=== PATIENT | female | born 1990 | race African-American/Black ===

== ENCOUNTER 2016-04-06 19:26 | Emergency (ER) | payer OTHER ==
[2016-04-06] MEDS ORDERED: HYDROcodone /APAP 5/325 1 EACH TABLET PO ONE (19:40)
[2016-04-06] MEDS ORDERED: CEPHALEXIN 250 MG CAPSULE PO ONE (19:40)
[2016-04-06 19:42] VITALS: BP 140/81
--- NOTE | 2016-04-06 19:42 | ED Physician Documentation ---
General Adult - HISTORIAN Historian: patient - HPI Stated Complaint: dental pain Chief Complaint: General Adult Onset: hours Timing: still present Severity: moderate Further Comments: yes (Pt is a 25 yo female with dental pain in the lower L rear molar that started earlier today. No fever, n/v. Pt has hx Hodkins lymphoma. Pt has dental appointment arranged in the coming weeks for extractions.) - ROS CONST: no problems EYES/ENT: other (dental pain) GI/: none MS/SKIN/LYMPH: none - PAST HX Past History: other (Hodkins Lymphoma) Allergies/Adverse Reactions: Allergies Allergy/AdvReac Type Severity Reaction Status Date / Time amoxicillin trihydrate Allergy Verified 04/06/16 19:43 [From Augmentin] lorazepam [From Ativan] Allergy Verified 04/06/16 19:43 potassium clavulanate Allergy Verified 04/06/16 19:43 [From Augmentin] Home Medications: Ambulatory Orders Medication Instructions Recorded Ferrous Gluconate [Iron] 236 mg PO D 01/17/16 - SOCIAL HX Smoking History: cigarettes - FAMILY HX Family History: No - VITAL SIGNS Vital Signs: Vital Signs Temp Pulse Resp BP Pulse Ox 123/82 01/17/16 04:04 - REVIEWED ASSESSMENTS Nursing Assessment Reviewed: Yes Vitals Reviewed: Yes Progress - Progress Progress: Rx Keflex 500 mg. Take one every 8 hrs for 10 days. Rx [place] (5/325). Take one every 4 to 6 hrs as needed for moderate to severe pain. Follow up with dentist as planned. ED Results Lab/Radiology - Orders Orders: ED Orders Category Date Time Status Cephalexin [Keflex] Med 04/06/16 19:40 Once 500 mg PO NOW ONE HYDROcodone /APAP 5/325 [[place] 5/325] Med 04/06/16 19:40 Once 4 each PO NOW ONE General Adult Physical Exam - PHYSICAL EXAM GENERAL APPEARANCE: moderate distress EENT: other (poor dentition; tenderness swelling, L rear molar) RESPIRATORY: no resp distress CVS: reg rate & rhythm, heart sounds normal BACK: normal inspection SKIN: warm/dry, normal color EXTREMITIES: normal range of motion NEURO: oriented X3 Discharge Clincal Impression: Pain, dental Referrals: Primary Doctor,No [Primary Care Provider] - Home Medications: Ambulatory Orders Ferrous Gluconate [Iron] 236 mg PO D 01/17/16 Condition: Stable Disposition: 01 HOME, SELF-CARE Decision to Admit: NO Decision Time: 20:30
== END 2016-04-06 20:03 | disposition home or self-care (01) ==
LOC: ED 19:26
DX: K02.9 Dental caries, unspecified (principal)

== ENCOUNTER 2016-08-02 14:16 | Emergency (ER) | payer OTHER ==
--- NOTE | 2016-08-02 14:19 | ED Physician Documentation ---
General Adult - HISTORIAN Historian: patient - HPI Stated Complaint: back pain Chief Complaint: General Adult Onset: days ago (3) Timing: still present Severity: moderate Further Comments: yes (Pt is a 26 yo female with back pain, chills, fever, nausea x 3 days. Pt has had urinary urgency and generalized achiness.) - ROS CONST: chills, other (malaise, achiness) EYES/ENT: none CVS/RESP: none GI/: abdominal pain (lower abd, suprapubic), problems urinating (urgency) MS/SKIN/LYMPH: none - PAST HX Past History: other (cancer) Allergies/Adverse Reactions: Allergies Allergy/AdvReac Type Severity Reaction Status Date / Time amoxicillin trihydrate Allergy Verified 04/06/16 19:43 [From Augmentin] lorazepam [From Ativan] Allergy Verified 04/06/16 19:43 potassium clavulanate Allergy Verified 04/06/16 19:43 [From Augmentin] Home Medications: Ambulatory Orders Medication Instructions Recorded Ferrous Gluconate [Iron] 236 mg PO D 01/17/16 - SOCIAL HX Smoking History: non-smoker - FAMILY HX Family History: No - VITAL SIGNS Vital Signs: Vital Signs Temp Pulse Resp BP Pulse Ox 140/81 04/06/16 23:07 - REVIEWED ASSESSMENTS Nursing Assessment Reviewed: Yes Vitals Reviewed: Yes Progress - Progress Progress: Ibuprofen 800 mg po in ER. Rx Ciprofloxacin 500 mg po bid x 10 days. General Adult Physical Exam - PHYSICAL EXAM GENERAL APPEARANCE: mild distress EENT: pharynx normal NECK: normal inspection, supple RESPIRATORY: no resp distress, chest non-tender, breath sounds normal CVS: reg rate & rhythm, heart sounds normal ABDOMEN: soft, normal bowel sounds, other (suprapubic tenderness) BACK: CVA tenderness (R) (mild) SKIN: warm/dry, normal color EXTREMITIES: non-tender, normal range of motion, no evidence of injury, no edema NEURO: oriented X3, motor nml, sensation nml Discharge Clincal Impression: early pyelonephritis UTI (urinary tract infection) Qualifiers: Urinary tract infection type: site unspecified Hematuria presence: with hematuria Qualified Code(s): N39.0 - Urinary tract infection, site not specified Referrals: Primary Doctor,No [Primary Care Provider] - 2 Days Home Medications: Ambulatory Orders Ferrous Gluconate [Iron] 236 mg PO D 01/17/16 Condition: Good Disposition: 01 HOME, SELF-CARE Decision to Admit: NO Decision Time: 14:53
[2016-08-02] MEDS ORDERED: IBUPROFEN 400 MG TABLET PO ONE ×2 (14:32→14:35)
[2016-08-02 15:11] LABS: APPEARANCE,URINE CLEAR (CLEAR); COLOR,URINE YELLOW (YELLOW)
[2016-08-02 15:12] LABS: OCCULT BLOOD,URINE 2+ (NEGATIVE); PH URINE 5.5 (5.0 - 8.0); URINE HCG NEGATIVE (NEGATIVE)
[2016-08-02 15:40] VITALS: BP 112/62
== END 2016-08-02 15:04 | disposition home or self-care (01) ==
LOC: ED 14:16
DX: N10 Acute pyelonephritis (principal); N39.0 Urinary tract infection, site not specified
CPT/HCPCS: 81002; 81025; 87086; 87186; 99283

== ENCOUNTER 2016-10-22 12:32 | Emergency (ER) | payer MEDICAID, OTHER ==
--- NOTE | 2016-10-22 13:26 | ED Physician Documentation ---
Fall - HISTORIAN Historian: patient - HPI Stated Complaint: fall Chief Complaint: Fall Additional Information: she fell sideways in the [facility] and landed on her right thigh. she is 12 weeks preg and she called her OB, they told her to go to the ER. She has had no pain, no bleeding, no cramping, no abdominal issues. Onset: just prior to arrival Where: home Context: slipped, lost balance r: mild Associated Symptoms:: no loss of consciousness Location of Pain/Injury: lower extremity, hip Injury to Right Extremity: hip, thigh Injury to Left Extremity: none Further Comments: no - ROS CONST: no problems NEURO: denies: dizziness MS/SKIN/LYMPH: denies: weakness, numbness EYES/ENT: none CVS/RESP: none GI/: denies: problems urinating, nausea, vomiting - PAST HX Past History: none, other (currently 12 weeks gestation) Allergies/Adverse Reactions: Allergies Allergy/AdvReac Type Severity Reaction Status Date / Time amoxicillin trihydrate Allergy Verified 10/22/16 12:59 [From Augmentin] lorazepam [From Ativan] Allergy Verified 10/22/16 12:59 potassium clavulanate Allergy Verified 10/22/16 12:59 [From Augmentin] Home Medications: Ambulatory Orders Medication Instructions Recorded Ferrous Gluconate [Iron] 236 mg PO D 01/17/16 Vit/Iron Fumarate/FA 1 tab PO DAILY 10/22/16 [ Tablet] - SOCIAL HX Smoking History: non-smoker Alcohol Use: none Drug Use: none - FAMILY HX Family History: none - VITAL SIGNS Vital Signs: Vital Signs Temp Pulse Resp BP Pulse Ox 98.1 F 75 16 127/56 98 10/22/16 12:46 10/22/16 12:46 10/22/16 12:46 10/22/16 12:46 10/22/16 12:46 - REVIEWED ASSESSMENTS Nursing Assessment Reviewed: Yes Vitals Reviewed: Yes Fall Physical Exam - Physical Exam General Appearance: no acute distress, alert Head: non-tender Neck: non-tender Eye: EOMI ENT: nml external inspection Resp/CVS: chest non-tender Abdomen: soft. No: tenderness Neuro: oriented x3 Skin: color nml Back: normal inspection Extremities: atraumatic Discharge Clincal Impression: Incidental intrauterine Fall Qualifiers: Encounter type: initial encounter Qualified Code(s): W19.XXXA - Unspecified fall, initial encounter Contusion of thigh, right Qualifiers: Encounter type: initial encounter Qualified Code(s): S70.11XA - Contusion of right thigh, initial encounter Referrals: Primary Doctor,No [Primary Care Provider] - 2 Days Home Medications: Ambulatory Orders Ferrous Gluconate [Iron] 236 mg PO D 01/17/16 Vit/Iron Fumarate/FA [ Tablet] 1 tab PO DAILY 10/22/16 Condition: Good Disposition: 01 HOME, SELF-CARE Decision to Admit: NO Date of Decison to Admit: 10/22/16 Decision Time: 13:31
[2016-10-22 13:37] VITALS: BP 116/64
== END 2016-10-22 13:35 | disposition home or self-care (01) ==
LOC: ED 12:32
DX: S70.11XA Contusion of right thigh, initial encounter (principal); W19.XXXA Unspecified fall, initial encounter; Y93.9 Activity, unspecified; Y99.9 Unspecified external cause status; Z33.1 Pregnant state, incidental
CPT/HCPCS: 99283

== ENCOUNTER 2016-11-04 07:02 | Emergency (ER) | payer MEDICAID, OTHER ==
--- NOTE | 2016-11-04 07:15 | ED Physician Documentation ---
Sore Throat/Dental Pain - HISTORIAN Historian: patient - HPI Chief Complaint: Dental Pain Onset: hours (8 hours) Associated Symptoms: denies: fever, chills Further Comments: yes (Patient has had previous dental issues with tooth, last noc started to hurt again, is having some swelling to the gum zafar, no fever or chills. Patient is 13 weeks at this time. Does have an appointment with dentist.) - ROS CONST: no problems - PAST HX Past History: none Other History: none Immunizations: referred to PCP Allergies/Adverse Reactions: Allergies Allergy/AdvReac Type Severity Reaction Status Date / Time amoxicillin trihydrate Allergy Verified 10/22/16 12:59 [From Augmentin] lorazepam [From Ativan] Allergy Verified 10/22/16 12:59 potassium clavulanate Allergy Verified 10/22/16 12:59 [From Augmentin] Home Medications: Ambulatory Orders Medication Instructions Recorded Ferrous Gluconate [Iron] 236 mg PO D 01/17/16 Vit/Iron Fumarate/FA 1 tab PO DAILY 10/22/16 [ Tablet] Clindamycin HCl [Cleocin HCl] 300 mg PO QID #28 capsule 11/04/16 - SOCIAL HX Smoking History: quit less than 1 year Alcohol Use: none Drug Use: none - FAMILY HX Family History: No - VITAL SIGNS Vital Signs: Vital Signs Temp Pulse Resp BP Pulse Ox 116/64 10/22/16 13:36 - REVIEWED ASSESSMENTS Nursing Assessment Reviewed: Yes Vitals Reviewed: Yes Dental Pain Physical Exam - EXAM General Appearance: alert, mild distress Head/Neck: head nml inspection, trachea midline, no lymphadenopathy, mandibular swelling (L) (mild). No: cervical lymphadenopathy Mouth/Throat: lips nml, pharynx nml, voice nml, dental tenderness, gum swelling around teeth, widespread dental decay Ear/Nose: nml inspection Respiratory: no resp. distress, breath sounds nml, respiratory distress CVS: reg. rate & rhythm, heart sounds nml. No: murmur, tachycardia, bradycardia Abdomen: soft, no organomegaly, normal bowel sounds, no abdominal bruit Skin: warm/dry, normal color Neuro/Psych: No: weakness, numbness Discharge Clincal Impression: Pain due to dental caries Prescriptions: Clindamycin HCl [Cleocin HCl] 300 mg PO QID #28 capsule Referrals: Primary Doctor,No [Primary Care Provider] - 2 Days Additional Instructions: Drink a lot of fluids, gargle with salt water. If symptoms do not improve to follow-up with your primary care provider. Take Tylenol as needed for pain. Take clindamycin for infection. Home Medications: Ambulatory Orders Ferrous Gluconate [Iron] 236 mg PO D 01/17/16 Vit/Iron Fumarate/FA [ Tablet] 1 tab PO DAILY 10/22/16 Clindamycin HCl [Cleocin HCl] 300 mg PO QID #28 capsule 11/04/16 Condition: Stable Disposition: 01 HOME, SELF-CARE Decision to Admit: NO Date of Decison to Admit: 11/04/16 Decision Time: 07:27
[2016-11-04] MEDS ORDERED: CLINDAMYCIN HCL 150 MG CAPSULE PO ONE (07:23)
[2016-11-04 07:36] VITALS: BP 150/68
== END 2016-11-04 07:34 | disposition home or self-care (01) ==
LOC: ED 07:02
DX: K02.9 Dental caries, unspecified (principal)
CPT/HCPCS: 99283; A9270

== ENCOUNTER 2018-12-03 22:45 | Emergency (ER) | payer MEDICAID, OTHER ==
--- NOTE | 2018-12-03 23:29 | ED Physician Documentation ---
Skin Rash - HISTORIAN Historian: patient - HPI Stated Complaint: Sore to Lt lower leg, medially Chief Complaint: Skin Rash Onset: other (yesterday) Timing: worse Location: LLE Further Comments: yes (28 year old female patient presents with complaint of wound to LLE; concerned she has a spider bite. "Popped" it yesterday and made it drain. Now painful. Took tylenol this morning.) - ROS CONST: none CVS/RESP: none EYES/ENT: none GI/: none MS/SKIN/LYMPH: none NEURO/PSYCH: none - PAST HX Past History: denies: none Allergies/Adverse Reactions: Allergies Allergy/AdvReac Type Severity Reaction Status Date / Time amoxicillin trihydrate Allergy Verified 12/03/18 23:14 [From Augmentin] lorazepam [From Ativan] Allergy Verified 12/03/18 23:14 potassium clavulanate Allergy Verified 12/03/18 23:14 [From Augmentin] Home Medications: Ambulatory Orders Medication Instructions Recorded Mupirocin 2% Oint. [Bactroban] 1 appl TP BID #1 tube 12/03/18 Sulfamethoxazole/Trimethoprim 1 each PO BID #20 tab 12/03/18 [Bactrim Ds] - SOCIAL HX Smoking History: cigarettes - FAMILY HX Family History: denies: none - VITAL SIGNS Vital Signs: Vital Signs Temp Pulse Resp BP Pulse Ox 97.9 F 89 14 121/67 99 12/03/18 22:46 12/03/18 22:46 12/03/18 22:46 12/03/18 22:46 12/03/18 22:46 - REVIEWED ASSESSMENTS Nursing Assessment Reviewed: Yes Vitals Reviewed: Yes ED Results Lab/Radiology - Orders Orders: ED Orders Category Date Time Status Cephalexin [Keflex] Med 12/03/18 23:25 Discontinued 500 mg PO NOW ONE Skin Rash Physical Exam - EXAM General Appearance: no acute distress (sleeping on stretcher), mild distress Location: extremities (LLE) Character: erythematous Symptoms: warmth, tenderness, other (1 cm scabbed area with erythema on LLE - medial aspect just above ankle) Extremities: non-tender, nml ROM, no edema Respiratory: no resp distress CVS: reg. rate & rhythm Neuro/Psych: oriented x3 Discharge Clincal Impression: Cellulitis of lower leg Prescriptions: Mupirocin 2% Oint. [Bactroban] 1 appl TP BID #1 tube Sulfamethoxazole/Trimethoprim [Bactrim Ds] 1 each PO BID #20 tab Referrals: Primary Doctor,No [Primary Care Provider] - 2 Days Additional Instructions: Clean the wound twice a day with hibiclens and rinse with water clean away any scabbed area Apply thin coat of antibiotic ointment after cleaning the wound. Cover with non-adherent bandage if able. If you have pain, take simple pain relief medication such as Tylenol or ibuprofen. Condition: Stable Disposition: 01 HOME, SELF-CARE Decision to Admit: NO Decision Time: 23:29
[2018-12-03] MEDS: CEPHALEXIN 250 MG CAPSULE PO ONE (23:35)
[2018-12-03 23:41] VITALS: BP 116/64
== END 2018-12-03 23:39 | disposition home or self-care (01) ==
LOC: ED 22:45
DX: L03.116 Cellulitis of left lower limb (principal)
CPT/HCPCS: 99281; 99284

== ENCOUNTER 2019-01-02 01:06 | Emergency (ER) | payer SELFPAY ==
--- NOTE | 2019-01-02 01:13 | ED Physician Documentation ---
General Adult - HISTORIAN Historian: patient - HPI Stated Complaint: headache, diarrhea Chief Complaint: General Adult Onset: days ago Timing: still present Severity: moderate Further Comments: yes (Pt is a 28 yo female with c/o headache and diarrhea. Sx began with a cough 4 days ago. Other sx started this am. Pt has had chills. No dysuria.) - ROS CONST: chills EYES/ENT: none GI/: nausea MS/SKIN/LYMPH: none NEURO/PSYCH: headache - PAST HX Past History: none Allergies/Adverse Reactions: Allergies Allergy/AdvReac Type Severity Reaction Status Date / Time amoxicillin trihydrate Allergy Verified 01/02/19 01:30 [From Augmentin] lorazepam [From Ativan] Allergy Verified 01/02/19 01:30 potassium clavulanate Allergy Verified 01/02/19 01:30 [From Augmentin] Home Medications: Ambulatory Orders Medication Instructions Recorded Sulfamethoxazole/Trimethoprim 1 each PO BID #14 tablet 01/02/19 [Bactrim Ds] - SOCIAL HX Smoking History: cigarettes - FAMILY HX Family History: No - VITAL SIGNS Vital Signs: Vital Signs Temp Pulse Resp BP Pulse Ox 116/64 12/03/18 23:39 - REVIEWED ASSESSMENTS Nursing Assessment Reviewed: Yes Vitals Reviewed: Yes Progress - Progress Progress: NS 1 L IVF Zofran 4 mg IV Toradol 30 mg IV improved Rx Bactrim DS. Take one every 12 hours for 7 days. General Adult Physical Exam - PHYSICAL EXAM GENERAL APPEARANCE: moderate distress EENT: pharynx normal NECK: normal inspection, supple. No: lymphadenopathy RESPIRATORY: no resp distress, chest non-tender, breath sounds normal, other (cough) CVS: reg rate & rhythm, heart sounds normal ABDOMEN: soft, no organomegaly, normal bowel sounds BACK: normal inspection, no CVA tenderness SKIN: warm/dry, normal color EXTREMITIES: non-tender, normal range of motion, no evidence of injury, no edema NEURO: oriented X3, motor nml, sensation nml Discharge Clincal Impression: diarrhea, headache Prescriptions: Sulfamethoxazole/Trimethoprim [Bactrim Ds] 1 each PO BID #14 tablet Referrals: Primary Doctor,No [Primary Care Provider] - Condition: Stable Disposition: 01 HOME, SELF-CARE Decision to Admit: NO Decision Time: 03:08
[2019-01-02] MEDS: KETOROLAC TROMETHAMINE 30 MG/1ML VIAL IV ONE (02:01)
[2019-01-02] MEDS: 0.9 % SODIUM CHLORIDE 1,000 ML IV ONE (02:02)
[2019-01-02] MEDS: ONDANSETRON HCL/PF 4 MG/ 2ML VIAL IVP ONE (02:02)
[2019-01-02] MEDS: SULFAMETHOXAZOLE/TRIMETHOPRIM 800/160MG TAB PO ONE (03:10)
[2019-01-02 03:54] VITALS: BP 126/64
[2019-01-02 06:24] LABS: APPEARANCE,URINE CLEAR (CLEAR); COLOR,URINE YELLOW (YELLOW)
[2019-01-02 06:25] LABS: OCCULT BLOOD,URINE NEGATIVE (NEGATIVE)
[2019-01-02 07:04] LABS: BASOPHILS % 0.7 % (0.0-1.5); NEUTROPHILS # 5.2 # k/uL (1.4-7.7); eGFR (Non-African) > 60
== END 2019-01-02 03:17 | disposition home or self-care (01) ==
LOC: ED 01:06
DX: R51 Headache (principal); R19.7 Diarrhea, unspecified
CPT/HCPCS: 80053; 81002; 81025; 85025; 87400; 96361; 96374; 96375; 99284; J1885; J2405; A9270; J7030; S1016